=== PATIENT | male | born 1955 | race Caucasian/White ===

== ENCOUNTER 2018-10-16 09:48 | Outpatient (CLI) | payer OTHER | END 2018-10-16 09:58 | disposition home or self-care (01) | LOC: MRI 09:48 | DX: M15.0 Primary generalized (osteo)arthritis (principal) | CPT/HCPCS: 73718 ==

== ENCOUNTER 2019-01-23 07:42 | Outpatient (CLI) | payer OTHER | END 2019-01-23 13:10 | disposition home or self-care (01) | LOC: LAB 07:42 | DX: N18.9 Chronic kidney disease, unspecified (principal); D64.89 Other specified anemias; C61 Malignant neoplasm of prostate; E11.9 Type 2 diabetes mellitus without complications; E78.49 Other hyperlipidemia; E03.8 Other specified hypothyroidism; R19.5 Other fecal abnormalities; C64.9 Malignant neoplasm of unspecified kidney, except renal pelvis ==

== ENCOUNTER 2019-01-25 07:44 | Outpatient (CLI) | payer OTHER | END 2019-01-25 17:14 | disposition home or self-care (01) | LOC: LAB 07:44 | DX: E03.8 Other specified hypothyroidism (principal); R19.5 Other fecal abnormalities; C64.9 Malignant neoplasm of unspecified kidney, except renal pelvis; N18.9 Chronic kidney disease, unspecified; D64.89 Other specified anemias; C61 Malignant neoplasm of prostate; E11.9 Type 2 diabetes mellitus without complications; E78.49 Other hyperlipidemia ==

== ENCOUNTER 2019-02-12 10:11 | Outpatient (CLI) | payer OTHER | END 2019-02-12 10:28 | disposition home or self-care (01) | LOC: SONOGRAMA 10:11 | DX: N18.9 Chronic kidney disease, unspecified (principal); R31.9 Hematuria, unspecified ==

== ENCOUNTER 2019-02-13 09:49 | Outpatient (CLI) | payer OTHER | END 2019-02-13 14:41 | disposition home or self-care (01) | LOC: LAB 09:49 | DX: E11.9 Type 2 diabetes mellitus without complications (principal) ==

== ENCOUNTER 2019-10-01 10:31 | Outpatient (CLI) | payer OTHER | END 2019-10-01 15:27 | disposition home or self-care (01) | LOC: MRI 10:31 | DX: M54.5 Low back pain (principal); M50.123 Cervical disc disorder at C6-C7 level with radiculopathy | CPT/HCPCS: 72148 ==

== ENCOUNTER → 2019-11-10 | Outpatient (CLI) | payer OTHER | END | disposition home or self-care (01) | LOC: MRI 12:45 | DX: G95.20 Unspecified cord compression (principal); M54.2 Cervicalgia | CPT/HCPCS: 72141 ==

== ENCOUNTER 2020-08-01 07:19 | Outpatient (CLI) | payer OTHER | END 2020-08-01 07:28 | disposition home or self-care (01) | LOC: SONOGRAMA 07:19 | PROVIDERS: ATTEND Specialist | DX: Q61.02 Congenital multiple renal cysts (principal); R10.11 Right upper quadrant pain ==

== ENCOUNTER 2022-10-25 13:41 | Outpatient (CLI) | payer OTHER | END 2022-10-25 13:45 | disposition home or self-care (01) | LOC: MRI 13:41 | DX: M25.561 Pain in right knee (principal); M25.461 Effusion, right knee | CPT/HCPCS: 73718 ==

== ENCOUNTER 2023-02-17 10:40 | Outpatient (CLI) | payer OTHER | END 2023-02-17 10:54 | disposition home or self-care (01) | LOC: MRI 10:40 | DX: M54.17 Radiculopathy, lumbosacral region (principal) | CPT/HCPCS: 72148 ==

== ENCOUNTER 2023-06-19 10:48 | Outpatient (CLI) | payer OTHER | END 2023-06-19 10:59 | disposition home or self-care (01) | LOC: TOM 10:48 | DX: N20.0 Calculus of kidney (principal); N40.1 Benign prostatic hyperplasia with lower urinary tract symptoms; N52.9 Male erectile dysfunction, unspecified ==